=== PATIENT | female | born 1950 | race Caucasian/White ===

== ENCOUNTER 2021-11-14 11:28 | Day surgery (SDC) | payer MEDICARE, BC ==
[2021-11-14] MEDS ORDERED: Lactated Ringers 1,000 ML IV SCH (12:00)
[2021-11-14] MEDS ORDERED: Versed 2 MG/2 ML Injection ONE (14:23)
[2021-11-14] MEDS ORDERED: Xylocaine-Mpf 2% 5 Ml Vial ONE (14:23)
[2021-11-14] MEDS ORDERED: DIPRIVAN 200 MG/20 ML IV ONE ×2 (14:23→15:21)
[2021-11-14 16:45] VITALS: BP 162/84; PULSE 65; O2SAT 93
--- NOTE | 2021-12-12 08:35 | OP ---
PROCEDURE DATE/TIME: 11/14/2021 1443 PREOPERATIVE DIAGNOSES: 1) History of colon cancer and polyps. 2) Dysphagia and bloating. POSTOPERATIVE DIAGNOSES: 1) Hiatal hernia. 2) Reflux esophagitis. 3) Schatzki ring. 4) Duodenitis. 5) Lipomatous ileocecal valve. 6) Colonic polyp. 7) Diverticulosis. PROCEDURES: 1) EGD with biopsy. 2) Colonoscopy with hot snare polypectomy, hot forceps polypectomy and cold forceps polypectomy. PROCEDURE PERFORMED BY: Sandra Lopez M.D. ANESTHESIA: MAC. ESTIMATED BLOOD LOSS: Minimal. COMPLICATIONS: None. SPECIMENS: 1) Duodenum and duodenal bulb inflammation. 2) Gastric body biopsy. 3) Distal esophagus biopsy. 4) Proximal ascending polyp #1. 5) Proximal ascending polyp #2. 6) Splenic flexure polyp. 7) Anastomotic polyp. 8) Distal ascending colon polyp. 9) Sigmoid polyp. HISTORY: This is a 70-year-old female who presents for surveillance colonoscopy due to history of colon cancer and history of polyp and then EGD for dysphagia and bloating. Risks, benefits, alternatives, H&P, consent all reviewed with the patient preoperatively. DESCRIPTION OF PROCEDURE: She was then brought back to the endoscopy suite, laid in the left lateral decubitus position. A complete time out is performed. The scope was gently introduced into the mouth, oropharynx, down into the esophagus, stomach and duodenum. In her duodenum she did have some duodenitis grossly as well as some inflammation in the bulb. Scope was inserted to the level of approximately D2. The second portion of the duodenum was biopsied as well as the first portion to rule out celiac disease and the first portion of the duodenum where there was inflammation was separately biopsied and sent to pathology due to the duodenitis. We did also biopsy her gastric antrum where she had what appeared to be gastritis and sent all specimens to pathology as well as her gastric body. The stomach was slowly visualized. We did retroflex to look at the hiatus. The patient does have a small hiatal hernia. The scope was then unretroflexed. We insured all biopsy sites were hemostatic. There were no significant masses or ulcers identified. The scope was then withdrawn into the distal esophagus. The gastroesophageal junction was about 37 to 38 cm. Again, she did have a small hiatal hernia. She had a very, very subtle Schatzki ring here with two very small ulcerations consistent with reflux esophagitis. We very carefully took biopsies to check for Luke's disease and sent these to pathology. These sites were all hemostatic. The esophagus is wide open. There were no significant strictures to dilate and then the scope was slowly removed. The patient tolerated the procedure. There were no complications. She was then repositioned for colonoscopy. First, a rectal exam was done. The scope was then inserted and gently advanced to the level of the cecum. The prep was satisfactory. As we carefully withdrew the scope, there were numerous polyps. The polyps are as follows and were taken as follows: Proximal ascending colon polyp #1 was taken with hot snare in its entirety. Proximal ascending colon polyp #2 was taken with a cold snare in entirety. The splenic flexure polyp was small about 2 to 3 mm and taken with hot forceps. The anastomotic polyp was taken in entirety with cold forceps. The distal ascending colon polyp was taken with hot snare in entirety and the sigmoid polyp was taken with cold forceps. All polyps were retrieved and sent to pathology. Outside of the polyps, the lining of the mucosa appeared to be normal. She did have diverticula scattered throughout the colon to the level of the ascending colon. The patient's anastomosis had one very small benign appearing polyp that may just be hyperplastic and it was taken in entirety. Otherwise the anastomosis at approximately 19 cm looked very healthy and is taken. She did also have a lipomatous ileocecal valve with no masses identified and a normal appearing immediate terminal ileum. Her rectum appeared to be normal. The scope was completely withdrawn. The patient tolerated the procedure very well. There were no immediate complications. PLAN: At this time I would recommend for the patient to have appropriate water intake, a fiber supplement. We will plan for another colonoscopy in approximately three years due to the finding of polyps and her distant history of colon cancer and she will be following up with me for all of her biopsy results and will be treated as well for reflux.
== END 2021-11-14 17:00 | disposition home or self-care (01) ==
LOC: SDC 11:28
PROVIDERS: ATTEND Surgery
DX: K44.9 Diaphragmatic hernia without obstruction or gangrene (principal); R13.10 Dysphagia, unspecified; Z86.010 Personal history of colon polyps; Z85.038 Personal history of other malignant neoplasm of large intestine; K21.00 Gastro-esophageal reflux disease with esophagitis, without bleeding; K22.2 Esophageal obstruction; K29.80 Duodenitis without bleeding; K57.30 Diverticulosis of large intestine without perforation or abscess without bleeding; D12.2 Benign neoplasm of ascending colon; D12.3 Benign neoplasm of transverse colon
CPT/HCPCS: 99100; J2250; J2704